=== PATIENT | female | born 1970 | race Caucasian/White ===

== ENCOUNTER 2016-10-17 08:05 | Day surgery (SDC) | payer OTHER ==
[2016-10-17] MEDS ORDERED: Lactated Ringers 1,000 ML IV SCH (08:15)
[2016-10-17] MEDS ORDERED: ceFAZolin 2 GM in Premix Bag 1 BAG IV ONE (08:33)
[2016-10-17] MEDS ORDERED: Ketamine 500 mg/10 ML MDV IV ONE (10:00)
[2016-10-17] MEDS ORDERED: Ketorolac 30 MG/ML SDV IVPUSH ONE (10:00)
[2016-10-17] MEDS ORDERED: Propofol 200 MG/20 ML SDV IV ONE (10:00)
[2016-10-17] MEDS ORDERED: fentaNYL 100 MCG/2 ML SDV IV ONE (10:00)
[2016-10-17] MEDS ORDERED: Midazolam 1 MG/ML 2 ML SDV IV ONE (10:00)
[2016-10-17] MEDS ORDERED: Glycopyrrolate 0.2 MG/ML 5 ML MDV IV ONE (10:00)
[2016-10-17] MEDS ORDERED: Lidocaine 2% 100 MG/5 ML Syringe IVPUSH ONE (10:00)
[2016-10-17] MEDS ORDERED: Lidocaine 1% with EPINEPHrine 1:100,000 20 ML MDV ONE (10:13)
[2016-10-17] MEDS ORDERED: Bupivacaine 0.5% 30 ML SDV ONE (10:14)
--- NOTE | 2016-10-17 10:38 | PCM.OPNOTE ---
- General Post-Op/Procedure Note Date of Surgery/Procedure: 10/17/16 Operative Procedure(s): excision of chronic abscess right axilla. Findings: three abscess cavities . 2 approx 1 x1.5 cm one 12 x 3 cm in size. Pre Op Diagnosis: hidranitis right axilla Post-Op Diagnosis: Same Anesthesia Technique: General ET Tube, Local (10 ml 1 % lido with epi/0.5% buvipicaine) Primary Surgeon: Jose Upton Anesthesia Provider: Jaun Aponte Pathology: three abscess cavities . 2 approx 1 x1.5 cm one 12 x 3 cm in size. EBL in mLs: 50 Complications: None Condition: Good Free Text/Narrative:: see dictation
[2016-10-17] MEDS ORDERED: Acetaminophen/HYDROcodone 325-5 MG Tab PO PRN (10:45)
[2016-10-17 12:51] VITALS: BP 120/81
--- NOTE | 2016-10-17 13:28 | OR ---
DATE OF OPERATION: 10/17/2016 SURGEON: Jose Upton MD PROCEDURE PERFORMED: Excision of chronic abscesses of the right axilla. PREOPERATIVE DIAGNOSIS: Hidradenitis suppurativa of the right axilla. POSTOPERATIVE DIAGNOSIS: Hidradenitis suppurativa of the right axilla. INDICATIONS FOR PROCEDURE: This is a 46-year-old white female, who has a history of recurrent abscesses in her right axillary area, in the hair-bearing area. On exam, she had an exam consistent with hydradenitis. She was offered and accepted excision of what appeared to be three separate tracts. INTRAOPERATIVE FINDINGS: In the mid axillary area, she had one area of chronic abscess that measured approximately 12 x 3 cm and two smaller ones superior to that which were both approximately 1 x 1.5 cm. DESCRIPTION OF OPERATION: After an excellent IV sedation was administered, a 1:1 mixture of 1% lidocaine with epinephrine 0.5% bupivacaine was used to infiltrate all three sites. Our attention was then turned to the main abscess site which measured approximately 13 cm in length. The skin was then excised and using a combination of electrocautery and sharp dissection, the abscess cavities were tracked out and excised from the surrounding normal tissue. This included a small wide branch inferiorly. The specimen was then passed off the field and the two superior abscess cavities were also injected and the specimen was excised and passed off the field. In the larger of our cavities, the skin edges were approximated with #2 Ethilon and the wound was packed with 4 x 4 soaked in Betadine. The other two wounds were also packed as well. A fluffy dressing was applied to the axilla and then this was covered with an ABD. She was taken to recovery room in good condition. /[id number] /MODL
== END 2016-10-17 11:47 | disposition home or self-care (01) ==
LOC: FB.SDS 08:05
PROVIDERS: ATTEND Surgery
DX: L73.2 Hidradenitis suppurativa (principal); K21.9 Gastro-esophageal reflux disease without esophagitis; Z90.49 Acquired absence of other specified parts of digestive tract; Z90.722 Acquired absence of ovaries, bilateral; F17.210 Nicotine dependence, cigarettes, uncomplicated
CPT/HCPCS: 11450; 88305; A9270; J0690; J1885; J2250; J2704; J3010; J7120

== ENCOUNTER 2019-01-15 20:20 | Observation (INO) | payer OTHER ==
[2019-01-15] MEDS ORDERED: Calcium Gluconate 10% 1 GM/10 ML SDV IVPUSH ONE (21:32)
[2019-01-15] MEDS ORDERED: Calcium Carbonate 500 MG Tab.Chew PO SCH (21:45)
--- NOTE | 2019-01-15 21:45 | EDM.PDOC ---
ED HPI GENERAL MEDICAL PROBLEM - General Chief Complaint: General Stated Complaint: THERONS MATT CHECKED Time Seen by Provider: 01/15/19 21:40 Source of Information: Reports: Patient History Limitations: Reports: No Limitations - History of Present Illness INITIAL COMMENTS - FREE TEXT/NARRATIVE: Ana is a 48 yo female who had a thyroidectomy on Sunday.She present with numbness and tingling of digits,for a few hours. She believes her calcium is low. She denies any voice changes,cramps or convulsions. No fever. No difficulty breathing or swallowing. - Related Data Allergies Allergy/AdvReac Type Severity Reaction Status Date / Time No Known Allergies Allergy Verified 01/15/19 20:51 Home Meds: Home Meds Calcium Carbonate [Calcium] 1,800 mg PO TIDAC 01/15/19 [History] Levothyroxine 150 mcg PO ACBREAKFAST 01/15/19 [History] oxyCODONE 5 mg PO Q4H PRN 01/15/19 [History] Past Medical History HEENT History: Reports: None, Impaired Vision Cardiovascular History: Reports: None Respiratory History: Reports: None, Other (See Below) Other Respiratory History: SMOKER Gastrointestinal History: Reports: Colon Polyp, Gastritis, GERD Genitourinary History: Reports: None 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 - Past Surgical History Head Surgeries/Procedures: Reports: None HEENT Surgical History: Reports: None Cardiovascular Surgical History: Reports: None Respiratory Surgical History: Reports: None GI Surgical History: Reports: Cholecystectomy, Colonoscopy, EGD Female Surgical History: Reports: Other (See Below) Other Female Surgeries/Procedures: LAPAROSCOPIC BILATERAL SALPINGECTOMY Endocrine Surgical History: Reports: None Neurological Surgical History: Reports: None Musculoskeletal Surgical History: Reports: None Oncologic Surgical History: Reports: None Social & Family History - Tobacco Use Smoking Status *Q: Current Every Day Smoker Years of Tobacco use: 30 Packs/Tins Daily: 1 - Caffeine Use Caffeine Use: Reports: Soda ED ROS GENERAL - Review of Systems Review Of Systems: ROS reveals no pertinent complaints other than HPI. ED EXAM, GENERAL - Physical Exam Exam: See Below Exam Limited By: No Limitations General Appearance: Alert, WD/WN, No Apparent Distress, Anxious Ears: Normal External Exam Ear Exam: Bilateral Ear: Auricle Normal, Canal Normal, TM normal Nose: Normal Inspection Throat/Mouth: Normal Inspection Neck: Supple, Full Range of Motion, Other (Thyroid surgical scr noted. trachea midline). No: Non-Tender, Lymphadenopathy (L) Respiratory/Chest: No Respiratory Distress, Lungs Clear Cardiovascular: Normal Peripheral Pulses Course - Vital Signs Last Recorded V/S: Last Vital Signs Temp 98 F 01/16/19 04:30 Pulse 70 01/16/19 04:30 Resp 16 01/16/19 04:30 BP 145/89 H 01/16/19 04:30 Pulse Ox 95 01/16/19 04:30 - Orders/Labs/Meds Orders: Active Orders 24 hr Category Date Time Status Patient Status [ADT] Routine ADT 01/15/19 21:32 Active Cardiac Monitoring [RC] CONTINUOUS Care 01/15/19 21:33 Active Height and Weight [RC] DAILY Care 01/15/19 21:32 Active Oxygen Therapy [RC] PRN Care 01/15/19 21:32 Active Up ad Alesha [RC] ASDIRECTED Care 01/15/19 21:32 Active VTE/DVT Education [RC] Per Unit Routine Care 01/15/19 21:32 Active Vital Signs [RC] Q4H Care 01/15/19 21:32 Active COMPREHENSIVE METABOLIC PN,CMP [CHEM] AM Lab 01/16/19 05:11 Ordered MAGNESIUM [CHEM] AM Lab 01/16/19 05:11 Ordered PHOSPHORUS [CHEM] AM Lab 01/16/19 05:11 Ordered Calcitriol [Rocaltrol] Med 01/15/19 21:45 Active 0.25 mcg PO BID Calcium Carbonate [Tums] Med 01/15/19 21:45 Active 1,000 mg PO BID Sodium Chloride 0.9% [Saline Flush] Med 01/15/19 21:32 Active 10 ml FLUSH ASDIRECTED PRN Peripheral IV Insertion Adult [OM.PC] Routine Oth 01/15/19 21:32 Ordered Resuscitation Status Routine Resus Stat 01/15/19 21:32 Ordered EKG 12 Lead [EK] Stat Ther 01/15/19 21:32 Ordered Medication Orders Calcitriol (Rocaltrol) 0.25 mcg PO BID JULIUS Last Admin: 01/15/19 22:42 Dose: 0.25 mcg Calcium Carbonate/Glycine (Tums) 1,000 mg PO BID JULIUS Last Admin: 01/15/19 22:42 Dose: 1,000 mg Sodium Chloride (Saline Flush) 10 ml FLUSH ASDIRECTED PRN PRN Reason: Keep Vein Open Last Admin: 01/16/19 04:34 Dose: 10 ml Admin: 01/15/19 22:36 Dose: 10 ml Labs: Laboratory Tests 01/15/19 Range/Units 20:45 Sodium 142 (135-145) mmol/L Potassium 3.3 L (3.5-5.3) mmol/L Chloride 105 (100-110) mmol/L Carbon Dioxide 26 (21-32) mmol/L BUN 14 (7-18) mg/dL Creatinine 0.9 (0.55-1.02) mg/dL Est Cr Clr Drug Dosing 75.15 mL/min Estimated GFR (MDRD) > 60 (>60) BUN/Creatinine Ratio 15.6 (9-20) Glucose 101 (80-116) mg/dL Calcium 6.9 L (8.6-10.2) mg/dL Total Bilirubin 0.3 (0.1-1.3) mg/dL AST 20 (5-25) IU/L ALT 20 (12-36) U/L Alkaline Phosphatase 62 (56-112) IU/L Total Protein 7.8 (6.0-8.0) g/dL Albumin 3.1 L (3.5-5.2) g/dL Globulin 4.7 g/dL Albumin/Globulin Ratio 0.7 Meds: Medications Generic Name Dose Route Start Last Admin Trade Name Freq PRN Reason Stop Dose Admin Calcitriol 0.25 mcg 01/15/19 21:45 01/15/19 22:42 Rocaltrol PO 0.25 mcg BID JULIUS Administration Calcium Carbonate/Glycine 1,000 mg 01/15/19 21:45 01/15/19 22:42 Tums PO 1,000 mg BID JULIUS Administration Sodium Chloride 10 ml 01/15/19 21:32 01/16/19 04:34 Saline Flush FLUSH 10 ml ASDIRECTED PRN Administration Keep Vein Open Discontinued Medications Generic Name Dose Route Start Last Admin Trade Name Cesar PRN Reason Stop Dose Admin Calcium Gluconate 1 gm 01/15/19 21:32 01/15/19 22:21 Calcium Gluconate IVPUSH 01/15/19 21:33 1 gm ONETIME ONE Administration Calcium Gluconate 1.5 gm/ 1,015 mls @ 169.167 mls/hr 01/15/19 22:00 01/15/19 22:36 Dextrose/Water IV 01/16/19 03:59 169.167 mls/hr NOW ONE Administration Departure - Departure Time of Disposition: 21:42 Disposition: Refer to Observation Condition: Good Clinical Impression: Hypocalcemia, S/P thyroidectomy - Discharge Information - Problem List & Annotations (1) Hypocalcemia SNOMED Code(s): 9008906 Code(s): E83.51 - HYPOCALCEMIA Status: Acute Current Visit: Yes (2) S/P thyroidectomy SNOMED Code(s): 814903497, 83656715, 269701067 Code(s): Z98.890 - OTHER SPECIFIED POSTPROCEDURAL STATES Status: Acute Current Visit: Yes - Problem List Review Problem List Initiated/Reviewed/Updated: Yes - My Orders Last 24 Hours: My Active Orders 01/15/19 21:32 Patient Status [ADT] Routine Height and Weight [RC] DAILY Oxygen Therapy [RC] PRN Up ad Alesha [RC] ASDIRECTED VTE/DVT Education [RC] Per Unit Routine Vital Signs [RC] Q4H Sodium Chloride 0.9% [Saline Flush] 10 ml FLUSH ASDIRECTED PRN Peripheral IV Insertion Adult [OM.PC] Routine Resuscitation Status Routine EKG 12 Lead [EK] Stat 01/15/19 21:33 Cardiac Monitoring [RC] CONTINUOUS 01/15/19 21:45 Calcitriol [Rocaltrol] 0.25 mcg PO BID Calcium Carbonate [Tums] 1,000 mg PO BID 01/16/19 05:11 COMPREHENSIVE METABOLIC PN,CMP [CHEM] AM MAGNESIUM [CHEM] AM PHOSPHORUS [CHEM] AM - Assessment/Plan Last 24 Hours: My Active Orders 01/15/19 21:32 Patient Status [ADT] Routine Height and Weight [RC] DAILY Oxygen Therapy [RC] PRN Up ad Alesha [RC] ASDIRECTED VTE/DVT Education [RC] Per Unit Routine Vital Signs [RC] Q4H Sodium Chloride 0.9% [Saline Flush] 10 ml FLUSH ASDIRECTED PRN Peripheral IV Insertion Adult [OM.PC] Routine Resuscitation Status Routine EKG 12 Lead [EK] Stat 01/15/19 21:33 Cardiac Monitoring [RC] CONTINUOUS 01/15/19 21:45 Calcitriol [Rocaltrol] 0.25 mcg PO BID Calcium Carbonate [Tums] 1,000 mg PO BID 01/16/19 05:11 COMPREHENSIVE METABOLIC PN,CMP [CHEM] AM MAGNESIUM [CHEM] AM PHOSPHORUS [CHEM] AM Plan: Her calcium is 6.9 mg/dl. As such I have recommended an admission for telemetry, and IV replacement of Calcium. Instructions from her surgeon is available on the hard copy.
[2019-01-15] MEDS ORDERED: DEXTROSE 5% IV ONE ×2 (22:00)
[2019-01-15] MEDS ORDERED: WATER IV ONE ×2 (22:00)
[2019-01-15] MEDS ORDERED: CALCIUM GLUCONATE IV ONE ×2 (22:00)
[2019-01-15] MEDS: Sodium Chloride 0.9% 10 ML Syringe FLUSH PRN (22:36)
[2019-01-15] MEDS: Calcitriol 0.25 MCG Cap PO SCH (22:42)
[2019-01-16] MEDS: Sodium Chloride 0.9% 10 ML Syringe FLUSH PRN ×3 (04:34→17:16)
[2019-01-16] MEDS ORDERED: oxyCODONE 5 MG Tab PO PRN (07:09)
[2019-01-16] MEDS: Levothyroxine 150 MCG Tab PO SCH (07:59)
[2019-01-16] MEDS ORDERED: Calcium Carbonate 500 MG Tablet PO SCH (08:30)
[2019-01-16] MEDS ORDERED: WATER IV ONE ×2 (10:15)
[2019-01-16] MEDS ORDERED: Calcitriol 0.25 MCG Cap PO SCH (10:15)
[2019-01-16] MEDS ORDERED: CALCIUM GLUCONATE IV ONE ×2 (10:15)
[2019-01-16] MEDS ORDERED: DEXTROSE 5% IV ONE ×2 (10:15)
--- NOTE | 2019-01-16 10:15 | PCM.HP.2 ---
H&P History of Present Illness - General Date of Service: 01/16/19 Admit Problem/Dx: Admission Diagnosis/Problem Admission Diagnosis/Problem Hypocalcemia Source of Information: Patient, Old Records History Limitations: Reports: No Limitations - History of Present Illness Initial Comments - Free Text/Narative: This is a 48-year-old female patient that 2 days ago had a thyroidectomy in [employer]. She was discharged home and have symptoms of not feeling good and tingling in her hands. She came to the urine or calcium was 6.9. She was admitted in the ER doc stated they talked to [employer] and to give her some IV calcium and if it was about 8 center home. This morning was 7.4. She still is a little tingling in her hands. She had EKG and on telemetry and no arrhythmias. She denies confusion, shaking, eye twitching. She is having no problems with the wound. Pain control with Percocet. - Related Data Allergies/Adverse Reactions: Allergies Allergy/AdvReac Type Severity Reaction Status Date / Time No Known Allergies Allergy Verified 01/15/19 20:51 Home Medications: Home Meds Calcium Carbonate [Calcium] 1,800 mg PO TIDAC 01/15/19 [History] Levothyroxine 150 mcg PO ACBREAKFAST 01/15/19 [History] oxyCODONE 5 mg PO Q4H PRN 01/15/19 [History] Past Medical History HEENT History: Reports: None, Impaired Vision Cardiovascular History: Reports: None Respiratory History: Reports: None, Other (See Below) Other Respiratory History: SMOKER Gastrointestinal History: Reports: Colon Polyp, Gastritis, GERD Genitourinary History: Reports: None 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 - Infectious Disease History Infectious Disease History: Reports: Chicken Pox - Past Surgical History Head Surgeries/Procedures: Reports: None HEENT Surgical History: Reports: None Cardiovascular Surgical History: Reports: None Respiratory Surgical History: Reports: None GI Surgical History: Reports: Cholecystectomy, Colonoscopy, EGD Female Surgical History: Reports: Other (See Below) Other Female Surgeries/Procedures: LAPAROSCOPIC BILATERAL SALPINGECTOMY Endocrine Surgical History: Reports: None Neurological Surgical History: Reports: None Musculoskeletal Surgical History: Reports: None Oncologic Surgical History: Reports: None Social & Family History - Family History Family Medical History: Noncontributory - Tobacco Use Smoking Status *Q: Current Every Day Smoker Years of Tobacco use: 30 Packs/Tins Daily: 1 Used Tobacco, but Quit: No Second Hand Smoke Exposure: No - Caffeine Use Caffeine Use: Reports: Soda - Alcohol Use Days Per Week of Alcohol Use: 4 Number of Drinks Per Day: 3 Total Drinks Per Week: 12 Date of Last Drink: 01/11/19 Time of Last Drink: 19:00 - Recreational Drug Use Recreational Drug Use: No H&P Review of Systems - Review of Systems: Review Of Systems: See Below General: Reports: No Symptoms HEENT: Reports: No Symptoms Pulmonary: Reports: No Symptoms Cardiovascular: Reports: No Symptoms Gastrointestinal: Reports: No Symptoms Genitourinary: Reports: No Symptoms Musculoskeletal: Reports: No Symptoms Skin: Reports: No Symptoms Psychiatric: Reports: No Symptoms Neurological: Reports: Tingling Hematologic/Lymphatic: Reports: No Symptoms Immunologic: Reports: No Symptoms Exam - Exam Exam: See Below - Vital Signs Vital Signs: Last Vital Signs Temp 98 F 01/16/19 04:30 Pulse 70 01/16/19 04:30 Resp 16 01/16/19 04:30 BP 145/89 H 01/16/19 04:30 Pulse Ox 95 01/16/19 04:30 Weight: 215 lb 3.2 oz - Exam General: Alert Neck: Supple, Trachea Midline Lungs: Clear to Auscultation, Normal Respiratory Effort Cardiovascular: Regular Rate, Regular Rhythm. No: Systolic Murmur GI/Abdominal Exam: Normal Bowel Sounds, Non-Tender, No Organomegaly, No Distention, No Mass Extremities: No Pedal Edema Skin: Other (Wound in the neck and whether drain was healing nicely without erythema.) Neurological: Normal Speech Neuro Extensive - Motor, Sensory, Reflexes: Normal Gait Psychiatric: Alert, Normal Affect - Patient Data Lab Results Last 24 hrs: Laboratory Results - last 24 hr 01/15/19 01/16/19 Range/Units 20:45 06:55 Sodium 142 143 (135-145) mmol/L Potassium 3.3 L 3.6 (3.5-5.3) mmol/L Chloride 105 104 (100-110) mmol/L Carbon Dioxide 26 29 (21-32) mmol/L BUN 14 12 (7-18) mg/dL Creatinine 0.9 0.9 (0.55-1.02) mg/dL Est Cr Clr Drug Dosing 75.15 75.15 mL/min Estimated GFR (MDRD) > 60 > 60 (>60) BUN/Creatinine Ratio 15.6 13.3 (9-20) Glucose 101 86 (80-116) mg/dL Calcium 6.9 L 7.4 L (8.6-10.2) mg/dL Phosphorus 6.4 H (2.6-4.6) mg/dL Magnesium 1.3 L (1.8-2.5) mg/dL Total Bilirubin 0.3 0.3 (0.1-1.3) mg/dL AST 20 16 D (5-25) IU/L ALT 20 17 D (12-36) U/L Alkaline Phosphatase 62 56 (56-112) IU/L Total Protein 7.8 6.9 (6.0-8.0) g/dL Albumin 3.1 L 2.6 L (3.5-5.2) g/dL Globulin 4.7 4.3 g/dL Albumin/Globulin Ratio 0.7 0.6 Result Diagrams: 01/16/19 06:55 - Problem List (1) Hypomagnesemia SNOMED Code(s): 796719012 ICD Code: E83.42 - HYPOMAGNESEMIA Status: Acute Current Visit: Yes (2) Hypocalcemia SNOMED Code(s): 5577126 ICD Code: E83.51 - HYPOCALCEMIA Status: Acute Current Visit: Yes (3) S/P thyroidectomy SNOMED Code(s): 670643364, 17528010, 939586133 ICD Code: Z98.890 - OTHER SPECIFIED POSTPROCEDURAL STATES Status: Acute Current Visit: Yes Problem List Initiated/Reviewed/Updated: Yes Orders Last 24hrs: Active Orders 24 hr Category Date Time Status Patient Status [ADT] Routine ADT 01/15/19 21:32 Active Cardiac Monitoring [RC] CONTINUOUS Care 01/15/19 21:33 Active Height and Weight [RC] DAILY Care 01/15/19 21:32 Active Oxygen Therapy [RC] PRN Care 01/15/19 21:32 Active Up ad Alesha [RC] ASDIRECTED Care 01/15/19 21:32 Active VTE/DVT Education [RC] Per Unit Routine Care 01/15/19 21:32 Active Vital Signs [RC] Q4H Care 01/15/19 21:32 Active Regular Diet [DIET] Diet 01/16/19 Breakfast Active CALCIUM [CHEM] Q8H Lab 01/16/19 14:00 Ordered CALCIUM [CHEM] Q8H Lab 01/16/19 22:00 Ordered CALCIUM [CHEM] Q8H Lab 01/17/19 06:00 Ordered CALCIUM [CHEM] Q8H Lab 01/17/19 14:00 Ordered CALCIUM [CHEM] Q8H Lab 01/17/19 22:00 Ordered CALCIUM [CHEM] Q8H Lab 01/18/19 06:00 Ordered MAGNESIUM [CHEM] Routine Lab 01/16/19 14:00 Ordered PHOSPHORUS [CHEM] Routine Lab 01/16/19 14:00 Ordered Calcitriol [Rocaltrol] Med 01/16/19 21:00 Active 0.5 mcg PO BID Calcium Carbonate [Oyster Shell Calcium] Med 01/16/19 10:00 Active 1,000 mg PO TIDAC Calcium Gluconate 1 gm Med 01/16/19 10:15 Active Sodium Chloride 0.9% [Normal Saline] 50 ml IV ONETIME Calcium Gluconate 1.5 gm Med 01/16/19 10:15 Active Dextrose 5% in Water 1,000 ml IV NOW Levothyroxine Med 01/16/19 07:30 Active 150 mcg PO ACBREAKFAST Magnesium Chloride [Mag-64] Med 01/16/19 21:00 Ordered 64 mg PO BID Sodium Chloride 0.9% [Saline Flush] Med 01/15/19 21:32 Active 10 ml FLUSH ASDIRECTED PRN oxyCODONE Med 01/16/19 07:09 Active 5 mg PO Q4H PRN Peripheral IV Insertion Adult [OM.PC] Routine Oth 01/15/19 21:32 Ordered Resuscitation Status Routine Resus Stat 01/15/19 21:32 Ordered EKG 12 Lead [EK] Stat Ther 01/15/19 21:32 Ordered Medication Orders Calcitriol (Rocaltrol) 0.5 mcg PO BID JULIUS Calcium Carbonate/Glycine (Oyster Shell Calcium) 1,000 mg PO TIDAC [facility] Calcium Gluconate 1 gm/ Sodium (Chloride) 60 mls @ 200 mls/hr IV ONETIME ONE Stop: 01/16/19 10:32 Calcium Gluconate 1.5 gm/ (Dextrose/Water) 1,015 mls @ 169.167 mls/hr IV NOW ONE Stop: 01/16/19 16:14 Levothyroxine Sodium (Levothyroxine) 150 mcg PO ACBREAKFAST [facility] Last Admin: 01/16/19 07:59 Dose: 150 mcg Oxycodone HCl (Oxycodone) 5 mg PO Q4H PRN PRN Reason: Pain Sodium Chloride (Saline Flush) 10 ml FLUSH ASDIRECTED PRN PRN Reason: Keep Vein Open Last Admin: 01/16/19 04:34 Dose: 10 ml Admin: 01/15/19 22:36 Dose: 10 ml Assessment/Plan Comment:: 1. Mid for observation. 2. Calcium checked 3 times a day and will check phosphorus and magnesium at 2 PM today. 3. Regular diet 4. Up ad alesha. 5. Continue home meds 6. Discussed this case with kiln fireman. He recommended IV calcium until she maintains her calcium between 8-9 for 24 hours off the IV. There is a protocol that's in her chart and we will give that today along with calcitriol 0.5 g twice a day by mouth plus calcium thousand milligrams 3 times a day. 7. SCD for VTE prophylaxis 8. By mouth magnesium.
[2019-01-16] MEDS: Calcium Carbonate 500 MG Tablet PO SCH ×3 (10:16→18:47)
[2019-01-16] MEDS: Magnesium Chloride 64 MG Tab.ER PO SCH ×2 (10:18→20:00)
[2019-01-16] MEDS: Calcitriol 0.25 MCG Cap PO SCH ×2 (11:32→20:00)
[2019-01-17] MEDS: Levothyroxine 150 MCG Tab PO SCH (06:49)
[2019-01-17] MEDS: Calcium Carbonate 500 MG Tablet PO SCH ×2 (06:50→12:55)
[2019-01-17 07:52] VITALS: BP 131/89; PULSE 72
[2019-01-17] MEDS: Magnesium Chloride 64 MG Tab.ER PO SCH (08:39)
[2019-01-17] MEDS: Calcitriol 0.25 MCG Cap PO SCH (08:39)
--- NOTE | 2019-01-17 09:04 | PCM.DCSUM1 ---
Discharge Summary - Hospital Course HPI Initial Comments: This is a 48-year-old female patient that 2 days ago had a thyroidectomy in [place]. She was discharged home and have symptoms of not feeling good and tingling in her hands. She came to the urine or calcium was 6.9. She was admitted in the ER doc stated they talked to [place] and to give her some IV calcium and if it was about 8 center home. This morning was 7.4. She still is a little tingling in her hands. She had EKG and on telemetry and no arrhythmias. She denies confusion, shaking, eye twitching. She is having no problems with the wound. Pain control with Percocet. Diagnosis: Stroke: No - Discharge Data Discharge Date: 01/17/19 Discharge Disposition: Home, Self-Care 01 Condition: Stable - Referral to Home Health Primary Care Physician: Jovon Nowak MD - Discharge Diagnosis/Problem(s) (1) Hypocalcemia SNOMED Code(s): 0665710 ICD Code: E83.51 - HYPOCALCEMIA Status: Resolved Current Visit: Yes (2) Hypomagnesemia SNOMED Code(s): 152853225 ICD Code: E83.42 - HYPOMAGNESEMIA Status: Resolved Current Visit: Yes (3) S/P thyroidectomy SNOMED Code(s): 426583062, 61266925, 837924273 ICD Code: Z98.890 - OTHER SPECIFIED POSTPROCEDURAL STATES Status: Acute Current Visit: Yes - Patient Summary/Data Hospital Course: Patient received 3 IV dose of Calcium, 1 gm x 1 and 1.5 gm x 2, started on oral calcium per endocrinology recommendations, 1000 mg tid along with Calcitriol 0.5 mcg bid. Her calcium trended up from 6.4 to 8.8 this morning. Her magnesium was also low at 1.3, getting Mag-64 bid. Has not required any Oxycodone during hospital for pain, so will discontinue on discharge. No symptoms further symptoms, will go home today and follow up for calcium and magnesium recheck on Sunday. - Patient Instructions Diet: Regular Diet as Tolerated Activity: As Tolerated Driving: May Drive Today Showering/Bathing: May Shower Notify Provider of: Fever, Swelling and Redness, Drainage, Nausea and/or Vomiting Other/Special Instructions: Follow up with Dr Nowak on SundayJan 20 for recheck of calcium and magnesium. - Discharge Plan *PRESCRIPTION DRUG MONITORING PROGRAM REVIEWED*: Not Applicable *COPY OF PRESCRIPTION DRUG MONITORING REPORT IN PATIENT ISSAC: Not Applicable Prescriptions/Med Rec: Calcitriol [Rocaltrol] 0.25 mcg PO BID #7 cap Magnesium Chloride [Mag-64] 64 mg PO BID #60 tab.er Home Medications: Home Meds Levothyroxine 150 mcg PO ACBREAKFAST 01/15/19 [History] Calcitriol [Rocaltrol] 0.25 mcg PO BID #7 cap 01/17/19 [Rx] Calcium Carbonate [Oyster Shell Calcium] 1,000 mg PO TIDAC tablet 01/17/19 [Rx] Magnesium Chloride [Mag-64] 64 mg PO BID #60 tab.er 01/17/19 [Rx] Patient Handouts: Thyroidectomy, Care After Forms: ED Department Discharge Referrals: Jovon Nowak MD [Primary Care Provider] - - Discharge Summary/Plan Comment DC Time >30 min.: No - General Info Date of Service: 01/17/19 Admission Dx/Problem (Free Text: She is feeling well this morning, no numbness or tingling, no muscle spasms. No nausea or vomiting. Normally has bowel movement every other day. No diarrhea. No pain from her surgery. No shortness of breath or chest pain. - Patient Data Vitals - Most Recent: Last Vital Signs Temp 98.2 F 01/17/19 07:48 Pulse 72 01/17/19 07:48 Resp 16 01/17/19 07:48 BP 131/89 01/17/19 07:48 Pulse Ox 94 L 01/17/19 07:48 Weight - Most Recent: 215 lb 3.2 oz Lab Results - Last 24 hrs: Laboratory Results - last 24 hr 01/16/19 01/16/19 01/17/19 Range/Units 14:00 22:10 05:58 Calcium 8.4 L 8.7 8.8 (8.6-10.2) mg/dL Phosphorus 5.9 H (2.6-4.6) mg/dL Magnesium 1.3 L (1.8-2.5) mg/dL Med Orders - Current: Current Medications Calcitriol (Rocaltrol) 0.25 mcg PO BID [facility]UL[facility] Last Admin: 01/17/19 08:39 Dose: 0.25 mcg Calcium Carbonate/Glycine (Oyster Shell Calcium) 1,000 mg PO TIDAC [facility] Last Admin: 01/17/19 06:50 Dose: 1,000 mg Levothyroxine Sodium (Levothyroxine) 150 mcg PO ACBREAKFAST [facility] Last Admin: 01/17/19 06:49 Dose: 150 mcg Magnesium Chloride (Mag-64) 64 mg PO BID [facility] Last Admin: 01/17/19 08:39 Dose: 64 mg Oxycodone HCl (Oxycodone) 5 mg PO Q4H PRN PRN Reason: Pain Sodium Chloride (Saline Flush) 10 ml FLUSH ASDIRECTED PRN PRN Reason: Keep Vein Open Last Admin: 01/16/19 17:16 Dose: 10 ml Discontinued Medications Calcitriol (Rocaltrol) 0.25 mcg PO BID [facility] Last Admin: 01/16/19 11:32 Dose: Not Given Calcitriol (Rocaltrol) 0.5 mcg PO BID [facility] Last Admin: 01/16/19 10:20 Dose: 0.5 mcg Calcium Carbonate/Glycine (Tums) 1,000 mg PO BID [facility] Last Admin: 01/15/19 22:42 Dose: 1,000 mg Calcium Carbonate/Glycine (Oyster Shell Calcium) 1,500 mg PO TIDAC [facility] Last Admin: 01/16/19 11:32 Dose: Not Given Calcium Gluconate (Calcium Gluconate) 1 gm IVPUSH ONETIME ONE Stop: 01/15/19 21:33 Last Admin: 01/15/19 22:21 Dose: 1 gm Calcium Gluconate 1.5 gm/ (Dextrose/Water) 1,015 mls @ 169.167 mls/hr IV NOW ONE Stop: 01/16/19 03:59 Last Admin: 01/15/19 22:36 Dose: 169.167 mls/hr Calcium Gluconate 1 gm/ Sodium (Chloride) 60 mls @ 200 mls/hr IV ONETIME ONE Stop: 01/16/19 10:32 Last Admin: 01/16/19 10:31 Dose: 200 mls/hr Calcium Gluconate 1.5 gm/ (Dextrose/Water) 1,015 mls @ 169.167 mls/hr IV NOW ONE Stop: 01/16/19 16:14 Last Admin: 01/16/19 11:01 Dose: 169.167 mls/hr - Exam General: Reports: Alert, Oriented, Cooperative, No Acute Distress Neck: Reports: Trachea Midline, Other (Incision: C/D/I) Lungs: Reports: Clear to Auscultation, Normal Respiratory Effort Cardiovascular: Reports: Regular Rate, Regular Rhythm GI/Abdominal Exam: Normal Bowel Sounds, Soft, Non-Tender, No Distention Extremities: No Pedal Edema Skin: Reports: Warm, Dry, Intact Wound/Incisions: Reports: Healing Well, No Drainage. Denies: Erythema
== END 2019-01-17 09:36 | disposition home or self-care (01) ==
LOC: FB.ED 20:20 → FB.MS 21:40
PROVIDERS: ADMIT Family Medicine; ATTEND Family Medicine
DX: E83.51 Hypocalcemia (principal); E83.42 Hypomagnesemia; E89.0 Postprocedural hypothyroidism; K21.9 Gastro-esophageal reflux disease without esophagitis; E66.9 Obesity, unspecified; F17.210 Nicotine dependence, cigarettes, uncomplicated; Z68.33 Body mass index [BMI] 33.0-33.9, adult
CPT/HCPCS: 36415; 80053; 82310; 83735; 84100; 93005; 93010; 99283; 99284; A9270; J0610; J7050; J7060; 96365; 96366; 96376; G0378

== ENCOUNTER 2022-10-12 12:22 | Emergency (ER) | payer BC, OTHER ==
[2022-10-12 13:27] LABS: BLOOD UREA NITROGEN,BUN 10 mg/dL (7-18); BUN/CREATININE RATIO 11.1 (9-20); CALCIUM 8.7 mg/dL (8.6-10.2); CARBON DIOXIDE,CO2 28 mmol/L (21-32); CHLORIDE,CL 102 mmol/L (100-110); CREATININE 0.9 mg/dL (0.55-1.02); EST CRCL DRUG DOSING (CG) 69.23 mL/min; ESTIMATED GFR 77 mL/min (>60); GLUCOSE RANDOM 95 mg/dL (80-116); SODIUM,NA 139 mmol/L (135-145)
[2022-10-12 13:32] LABS: A/G RATIO 0.9; ALANINE AMINOTRANSFERASE,ALT 25 U/L (12-36); ALBUMIN 3.6 g/dL (3.5-5.2); ALKALINE PHOSPHATASE 79 IU/L (56-112); ASPARTATE AMNIOTRANSFERASE,AST 28 IU/L (5-25); BILIRUBIN TOTAL 0.3 mg/dL (0.1-1.3); PROTEIN TOTAL,TP 7.7 g/dL (6.0-8.0)
[2022-10-12 13:35] LABS: C-REACTIVE PROTEIN 0.06 mg/dL (<0.33); TROPONIN I 18.1 pg/mL (4.0-60.3)
[2022-10-12 14:03] LABS: HEMATOCRIT 45.5 % (34.2-48.2); HEMOGLOBIN 15.8 g/dL (11.4-15.5); LYMPHOCYTES PERCENT AUTO 34.1 % (18.4-52.1); MEAN CORPUSCULAR HEMOGLOBIN 32.7 pg (23.9-33.9); MEAN CORPUSCULAR HGB CONC 34.7 g/dL (31.9-34.8); MEAN CORPUSCULAR VOLUME 94.1 fL (76.7-100.5); MEAN PLATELET VOLUME 8.7 fL (7.1-12.4); NEUTROPHILS PERCENT AUTO 58.6 % (30.8-76.2); PLATELET COUNT,PLT 212 x10(3)uL (151-488); RED BLOOD CELL COUNT 4.83 x10(6)uL (3.60-5.20); WHITE BLOOD CELL COUNT,WBC 9.9 x10-3/uL (3.0-10.3)
[2022-10-12 14:04] LABS: BASOPHILS ABSOLUTE AUTO 0.1 x10-3/uL (0.0-0.1); BASOPHILS PERCENT AUTO 1.1 % (0.2-1.5); EOSINOPHILS ABSOLUTE AUTO 0.2 x10-3/uL (0.0-0.8); EOSINOPHILS PERCENT AUTO 2.1 % (0.6-8.1); LYMPHOCYTES ABSOLUTE AUTO 3.4 x10-3/uL (1.0-4.4); MONOCYTES ABSOLUTE AUTO 0.4 x10-3/uL (0.3-1.0); MONOCYTES PERCENT AUTO 4.1 % (4.4-15.7); NEUTROPHILS ABSOLUTE AUTO 5.8 x10-3/uL (1.5-6.3)
[2022-10-12] MEDS ORDERED: Labetalol 20 MG/4 ML Syringe IVPUSH ONE (14:04)
[2022-10-12] MEDS ORDERED: Aspirin 81 MG Tab.Chew PO ONE (15:41)
[2022-10-12] MEDS ORDERED: Sodium Chloride 0.9% 1,000 ML IV ONE (15:44)
[2022-10-12] MEDS ORDERED: Heparin Sodium 5,000 Units/ML Vial IVPUSH ONE (15:50)
[2022-10-12] MEDS ORDERED: Heparin Sodium/0.45% NaCl 25,000 UNITS/500 ML BAG IV SCH (16:00)
[2022-10-12 16:06] LABS: INR 1.1 (1.00-1.24); PROTHROMBIN TIME 11.3 sec (9.0-11.1); PTT,PARTIAL THROMBOPLSTIN TIME 26.7 SECONDS (24.4-33.2)
[2022-10-12] MEDS ORDERED: Heparin Sodium/0.45% NaCl 500 ML IV SCH (16:15)
[2022-10-12] MEDS ORDERED: Metoprolol Tartrate 5 MG/5 ML SDV IVPUSH ONE (17:02)
[2022-10-12 17:21] LABS: BILIRUBIN,URINE NEGATIVE (NEGATIVE); GLUCOSE,URINE NORMAL (NORMAL); KETONES,URINE NEGATIVE (NEGATIVE); LEUKOCYTE ESTERASE,URINE NEGATIVE (NEGATIVE); NITRITE,URINE NEGATIVE (NEGATIVE); OCCULT BLOOD,URINE NEGATIVE (NEGATIVE); PROTEIN,URINE NEGATIVE (NEGATIVE); UROBILINOGEN,URINE NORMAL (NEGATIVE)
[2022-10-12 17:35] LABS: APPEARANCE,URINE CLEAR (CLEAR); BACTERIA,URINE RARE (NS); COLOR,URINE YELLOW (YELLOW); RBC,URINE 0-5 (0-5); SQUAMOUS EPITHELIAL CELLS,UR OCCASIONAL (NS,R,O); WBC,URINE 0-5 (0-5)
[2022-10-12 18:08] VITALS: BP 149/80; PULSE 63
== END 2022-10-12 18:30 ==
LOC: FB.ED 12:22
DX: I21.4 Non-ST elevation (NSTEMI) myocardial infarction (principal); F17.210 Nicotine dependence, cigarettes, uncomplicated; E03.9 Hypothyroidism, unspecified; E66.9 Obesity, unspecified; Z68.33 Body mass index [BMI] 33.0-33.9, adult; Z79.899 Other long term (current) drug therapy
CPT/HCPCS: 36415; 71046; 80053; 81001; 83735; 84484; 85025; 85379; 85610; 85730; 86140; 93005; 96365; 96366; 96375; 99285; A9270; J1644; J3490; J7030